=== PATIENT | male | born 1955 | race Caucasian/White ===

== ENCOUNTER 2025-02-14 08:27 | Outpatient (REF) | payer MEDICARE, SELFPAY | END 2025-02-14 08:28 | disposition home or self-care (01) | LOC: HO.LAB 08:27 | PROVIDERS: PCP Physician Assistant; Visit Provider Nurse Practitioner Family | DX: N40.1 Benign prostatic hyperplasia with lower urinary tract symptoms (principal); R39.14 Feeling of incomplete bladder emptying; N39.43 Post-void dribbling; R35.1 Nocturia; Z79.899 Other long term (current) drug therapy; Z12.5 Encounter for screening for malignant neoplasm of prostate | CPT/HCPCS: 51798; 81003; 84153; 88112; 99202 ==

== ENCOUNTER 2025-02-14 08:27 | Outpatient (AMB) | payer MEDICARE, SELFPAY ==
--- NOTE | 2025-02-14 08:54 | MHC.OFFVIS ---
Intake Visit Reasons: BPH Intake Note: New Patient Is Present for BPH/Incomplete Emptying Urology Med: Tamsulosin Antibiotic Allergy: Penicillin Blood Thinner: None PVR: 0ml Patient reports no uti symptoms, Gets ups 3+ times during the night to urinate, Currently on Tamsulosin (Works good for Patient) [employer] Required: No Accompanied by: Self / Same As Patient Allergies penicillin G (Penicillin G) Allergy (Unknown, Verified 02/14/25 09:30) UNKNOWN Medication List - Last Reconciled 02/14/25 by ROXY Thompson atorvastatin 40 mg PO BEDTIME dapagliflozin propanediol (Farxiga) 5 mg PO QAM lisinopril 10 mg PO DAILY tamsulosin 0.4 mg PO DAILY HPI Comments Details: Dejan is a pleasant 69-year-old male patient of Dr. Winkler. He has a past medical history of type 2 diabetes, anxiety, insomnia, vitamin-D deficiency, and BPH. To the office today as a new patient to establish urological care. He reports over the last 10 years he has been on Flomax and does feel this has been helpful. He reports most recently he has been experiencing issues with urinary dribbling and nocturia at which time his PCP recommended urology referral for further assessment evaluation. He also reports at times he feels incomplete bladder emptying. In office urinalysis results reviewed with the patient today 3+ glucosuria as well as 3+ microscopic hematuria. When asked he denies any previous history of nicotine dependence and or workplace chemical exposure. He does report infrequent social marijuana smoking. We did discussed potential causes of glucosuria as well as microscopic hematuria. He denies urinary urgency, urinary frequency, incontinence, gross/visible hematuria, dysuria, foul smelling urine, changes to urinary stream, flank pain, fever, and or chills. PVR 0 mL. He reports nocturia up to 3 times per night. He denies any signs or symptoms of sleep apnea. He does report being very active with his grand kids as well as great grand kids. We did discussed further workup to include PSA as well as retroperitoneal ultrasound. We also discussed pelvic floor exercises to assist with urinary dribbling. All questions were answered. He otherwise offers no other issues or concerns at this time. [facility] Medical History Controlled type 2 diabetes mellitus without complication, without long-term current use of insulin Newly diagnosed diabetes Anxiety disorder Other insomnia Vitamin D deficiency Benign prostatic hyperplasia with incomplete bladder emptying Tinea capitis Family History (Updated 02/14/25 @ 09:08 by FROYLAN Finney) Father Colon cancer Prostate cancer Mother Colon cancer Social History (Updated 02/14/25 @ 09:08 by FROYLAN Finney) Patient Tobacco Use Status: Never used Tobacco Review of Systems Const All systems reviewed & are unremarkable except as noted in HPI and below Physical Exam Const General: cooperative, healthy appearing, comfortable, no acute distress, well developed, alert and awake Orientation/consciousness: patient oriented x3 Limitations: no limitations HEENT Head: Yes normal to inspection, Yes normocephalic and Yes atraumatic Ears: hearing grossly normal bilaterally Eyes General: appearance normal, both eyes and all related structures Neck Neck: Yes normal visual inspection and Yes trachea midline Chest Chest palpation & inspection: normal inspection of the chest Resp Effort & Inspection: normal respiratory effort and able to speak in complete sentences Cardio Rate: regular rate GI Inspection: Yes normal to inspection General: Yes no CVA tenderness Back/Spine/Pelvis Back: no CVA tenderness Skin General skin exam: no rashes or lesions noted Neuro General: patient oriented x3 Extrem General: Yes normal to inspection Psych Appearance: grossly normal and well kempt Mental Status: mental status grossly normal Speech and movement: Normal speech and movement present and Clear speech present Affect: normal affect Attitude: cooperative Thought process: Normal thought process present Thought content: Normal thought content present Insight: Fair insight present (Psych) Judgement: Fair judgement present (Psych) Office Procedures Post Void Residual Post Residual Void Post Void Residual (PVR): [id number] Void Residual by ultrasound Results AMB Urinalysis, Automated UA Leukoctes 0 Doroteo/uL Last Edit by FROYLAN Finney on 02/14/25 09:10 UA Nitrite Negative Last Edit by FROYLAN Finney on 02/14/25 09:10 UA Urobilinogen 0.2 mg/dL Last Edit by FROYLAN Finney on 02/14/25 09:10 UA Protein 15 mg/dL Last Edit by FROYLAN Finney on 02/14/25 09:10 UA pH 5.0 Last Edit by Giovana Jurado RMA on 02/14/25 09:10 UA Blood 200 Reid/uL Last Edit by Giovana Houstonmychal RMA on 02/14/25 09:10 UA Specific Lowman 1.015 Last Edit by Giovana Houstonro, RMA on 02/14/25 09:10 UA Ketone Negative Last Edit by Giovanasteve Jurado, RMA on 02/14/25 09:10 UA Bilirubin 0 mg/dL Last Edit by Giovana Jurado RMA on 02/14/25 09:10 UA Glucose 1000 mg/dL Last Edit by Giovana Jurado RMA on 02/14/25 09:10 Results Reviewed Results Reviewed: Laboratory Last Values Urine pH (Auto) 5.0 02/14/25 09:09 Specific Lowman (Auto) 1.015 02/14/25 09:09 Urine Protein (Auto) 15 mg/dL 02/14/25 09:09 Glucose (UA)(Auto) 1000 mg/dL 02/14/25 09:09 Urine Ketones (Auto) Negative 02/14/25 09:09 Urine Blood (Auto) 200 Reid/uL 02/14/25 09:09 Urine Nitrite (Auto) Negative 02/14/25 09:09 Urine Bilirubin (Auto) 0 mg/dL 02/14/25 09:09 Urine Urobilinogen (Auto) 0.2 mg/dL 02/14/25 09:09 Leukocyte Esterase (Auto) 0 Doroteo/uL 02/14/25 09:09 Assessment & Plan Assessment & Plan (1) Feeling of incomplete bladder emptying: Code(s): R39.14 - Feeling of incomplete bladder emptying Category: Medical (2) Urinary dribbling: Code(s): N39.43 - Post-void dribbling Category: Medical (3) Microhematuria: Code(s): R31.29 - Other microscopic hematuria Category: Medical (4) Nocturia: Code(s): R35.1 - Nocturia Category: Medical Plan In office urinalysis results reviewed with the patient today; as noted above; will send for urine cytology. PVR 0 mL. We discussed pelvic floor exercises to assist with urinary dribbling. We discussed obtaining retroperitoneal ultrasound for further assessment evaluation. All questions were answered. Continue Flomax as discussed and prescribed. Will obtain PSA for further assessment evaluation. We discussed attempting to sit when voiding to relax pelvis to assist with bladder emptying. We did discussed potential causes of microscopic hematuria, urological symptoms he is reporting, and glucosuria. We discussed the importance of limiting fluids 2-3 hours prior to bed to decrease episodes of nocturia. We did discussed the importance of management and diabetes for improvement in urological health as well as overall health and well-being. Follow-up in 3 months with imaging, PSA and PVR; or sooner with any issues, concerns, and or questions. Orders: Orders AMB Urinalysis Automated Today Z13.9 - Encounter for screening, unspecified Prostate Specific Antigen Today N39.43 - Post-void dribbling, R39.14 - Feeling of incomplete bladder emptying AMB Post Void Residual by ultrasound Today N40.0 - Benign prostatic hyperplasia without lower urinary tract symptoms Urine Cytology Today R31.29 - Other microscopic hematuria US retroperitoneal comp Today N39.43 - Post-void dribbling, R39.14 - Feeling of incomplete bladder emptying Patient Instructions: The patient had an opportunity to ask questions regarding the treatment plan. All questions were answered. Physical exam, labs, and imaging were discussed and reviewed in detail. As well as risks, benefits, and discussion of treatment choices. No major barriers to understanding were identified. The patient expressed understanding and agreement with the above treatment plan. The patient was made aware they should contact our office by phone for worsening of their current condition, the appearance of new symptoms, or with any questions or concerns. Compliance is encouraged with any medications and follow up testing that is ordered. It is a privilege to be allowed the opportunity to participate in? your urological care.? Again, if you have any questions or concerns If you have any questions or concerns please do not hesitate to contact me. The office is [phone]. This note is constructed using voice recognition software. While every effort has been made to ensure accuracy process assistant errors may have been included. Yours sincerely, ROXY Thompson Coding Level of Care Code New Pt Level 3 (15204) Diagnoses Feeling of incomplete bladder emptying R39.14 Urinary dribbling N39.43 Microhematuria R31.29 Nocturia R35.1 CPT Codes Post Residual Void - PVR CPT Code: 72108-[id number] Void Residual by ultrasound ([id number])
== END 2025-02-14 09:27 | disposition home or self-care (01) ==
LOC: HO.HUSH 08:28
PROVIDERS: PCP Physician Assistant; Visit Provider Nurse Practitioner Family
DX: R39.14 Feeling of incomplete bladder emptying (principal); N39.43 Post-void dribbling; R31.29 Other microscopic hematuria; R35.1 Nocturia; Z13.9 Encounter for screening, unspecified
CPT/HCPCS: 99203

== ENCOUNTER 2025-02-14 09:27 | Outpatient (REF) | payer MEDICARE, SELFPAY ==
[2025-02-14 11:33] LABS: Prostate Specific Antigen 0.99 ng/mL (<0.05-4.0)
== END 2025-02-14 09:28 | disposition home or self-care (01) ==
LOC: HO.10HDLNP 09:27
PROVIDERS: Visit Provider Nurse Practitioner Family
DX: Z13.89 Encounter for screening for other disorder (principal)
CPT/HCPCS: 84153; 88112